=== PATIENT | male | born 1950 | race Caucasian/White ===

== ENCOUNTER 2017-06-12 15:42 | Emergency (ER) | payer OTHER ==
[2017-06-12 16:21] VITALS: BP 169/84
[2017-06-12] MEDS ORDERED: OFLO5DRO LEFTEYE (16:23)
--- NOTE | 2017-06-12 16:23 | PHYS DOC ---
Past History Past Medical History: No Pertinent History Smoking: Non-smoker Adult General Chief Complaint Chief Complaint: EYE PROBLEMS HPI HPI 66-year-old male patient who wearing hard contact lenses, states he put his contact lenses this morning and around 1300 had itching of his left eye and tried to remove his contact lens but could not find the contact lens in left eye and thinks it is stuck in his eye. Patient complaining of foreign body sensation in left eye tearing without drainage or pain. Review of Systems Review of Systems Constitutional: Denies fever or chills [] Eyes: Denies change in visual acuity, reports redness and foreign body sensation HENT: Denies nasal congestion or sore throat [] Respiratory: Denies cough or shortness of breath [] Cardiovascular: No additional information not addressed in HPI [] GI: Denies abdominal pain, nausea, vomiting, bloody stools or diarrhea [] : Denies dysuria or hematuria [] Musculoskeletal: Denies back pain or joint pain [] Integument: Denies rash or skin lesions [] Neurologic: Denies headache, focal weakness or sensory changes [] Endocrine: Denies polyuria or polydipsia [] All other systems were reviewed and found to be within normal limits, except as documented in this note. Current Medications Current Medications Current Medications Medications (Trade) Dose Ordered Sig/Krish Start Time Stop Time Status Last Admin Dose Admin Tetracaine HCl (Tetracaine) 1 drop 1X ONCE 06/12/17 16:30 06/12/17 16:31 06/12/17 16:09 1 DROP Allergies Allergies Allergies Uncoded Allergies Type Severity Reaction Last Updated Verified medical tape Allergy Mild rash 06/12/17 Physical Exam Physical Exam Constitutional: Well developed, well nourished, no acute distress, non-toxic appearance. [] HENT: Normocephalic, atraumatic Eyes: PERRLA, EOMI, no discharge, no foreign body in left eye, fluorescein test showing uptake in the center of left eye cornea. [] Neck: Normal range of motion, no tenderness, supple, no stridor. [] Cardiovascular:Heart rate regular rhythm, no murmur [] Lungs & Thorax: Bilateral breath sounds clear to auscultation [] Neurologic: Alert and oriented X 3, normal motor function, normal sensory function, no focal deficits noted. [] Psychologic: Affect normal, judgement normal, mood normal. [] EKG EKG [] Radiology/Procedures Radiology/Procedures [] Course & Med Decision Making Course & Med Decision Making discharge: I've spoken with the patient and/or caregivers. I've explained the patient's condition, diagnosis and treatment plan based on information available to me at this time. I've answered the patient's and/or caregivers questions and addressed any concerns. The patient and/or caregivers have a good understanding the patient's diagnosis, condition and treatment plan as can be expected at this point. Vital signs have been stabilized. The patient's condition is stable for discharge from the emergency department. The patient will pursue further outpatient evaluation with her primary care provider or other designated consulting physician as outlined in the discharge instructions. Patient and/or caregivers are agreeable to this plan of care and follow-up instructions have been explained in detail. The patient and/or caregivers have received these instructions in written format and expressed understanding of these discharge instructions. The patient and her caregivers are aware that if any significant change in condition or worsening of symptoms should prompt him to immediately return to this of the closest emergency department. If an emergent department is not readily available I would encourage him to call 911. [] Dragon Disclaimer Dragon Disclaimer This electronic medical record was generated, in whole or in part, using a voice recognition dictation system. Departure Departure: Impression: Primary Impression: Corneal abrasion of left eye due to contact lens Disposition: HOME, SELF-CARE (At 1620) Condition: STABLE Referrals: PCP,NO (PCP) Patient Instructions: Eye - Corneal Abrasion Additional Instructions: Do not wear contact lenses for 3 days Follow-up with your physician in 3-5 days Return to ER if not getting better Scripts Ofloxacin (OCUFLOX) 5 Ml Drops 2 DROP LEFTEYE QID for 5 Days, #1 BOTTLE Prov: LONDON KUMAR MD 06/12/17 LONDON KUMAR MD Jun 12, 2017 16:23
[2017-06-12] MEDS ORDERED: TETRACAINE 0.5% OPHTH SOLUTION 4ML BOTTLE. OS ONE (16:30)
== END 2017-06-12 16:30 | disposition home or self-care (01) ==
LOC: ER 15:42
DX: H18.822 Corneal disorder due to contact lens, left eye (principal); Z88.8 Allergy status to other drugs, medicaments and biological substances
CPT/HCPCS: 99283